=== PATIENT | female | born 1975 | race Asian ===

== ENCOUNTER 2017-11-29 17:12 | Emergency (ER) | payer BC ==
[2017-11-29 17:29] VITALS: BP 106/67
--- NOTE | 2017-11-29 18:29 | EDM.PDOC ---
ED HPI GENERAL MEDICAL PROBLEM - General Chief Complaint: Lower Extremity Injury/Pain Stated Complaint: RIGHT KNEE INJURY Time Seen by Provider: 11/29/17 17:27 Source of Information: Reports: Patient History Limitations: Reports: No Limitations - History of Present Illness INITIAL COMMENTS - FREE TEXT/NARRATIVE: The patient was skiing in [place] and she hit a pill of snow and hurt her right knee. Her ski flew off and she fell. When she got up, she had pain and her knee felt unstable. She has no other injuries. Onset: Sudden Duration: Hour(s): (10am) Location: Reports: Lower Extremity, Right (Knee) Quality: Reports: Sharp Severity: Moderate Improves with: Reports: Immobilization Worsens with: Reports: Movement Associated Symptoms: Reports: No Other Symptoms - Related Data Allergies Allergy/AdvReac Type Severity Reaction Status Date / Time No Known Allergies Allergy Verified 11/29/17 17:29 Home Meds: Home Meds Acetaminophen [Tylenol] 650 mg PO Q6H PRN #50 tablet 09/10/14 [Rx] Ibuprofen [Motrin] 200 - 800 mg PO Q6H PRN #50 tablet 09/10/14 [Rx] Past Medical History - Past Health History Medical/Surgical History: Denies Medical/Surgical History Social & Family History - Tobacco Use Smoking Status *Q: Never Smoker - Caffeine Use Caffeine Use: Reports: Coffee - Alcohol Use Days Per Week of Alcohol Use: 0 - Recreational Drug Use Recreational Drug Use: No Review of Systems - Review of Systems Review Of Systems: See Below Constitutional: Reports: No Symptoms Eyes: Reports: No Symptoms Ears: Reports: No Symptoms Nose: Reports: No Symptoms Mouth/Throat: Reports: No Symptoms Respiratory: Reports: No Symptoms Cardiovascular: Reports: No Symptoms GI/Abdominal: Reports: No Symptoms Musculoskeletal: Reports: Other (Right knee pain) ED EXAM, GENERAL - Physical Exam Exam: See Below Exam Limited By: No Limitations General Appearance: Alert, No Apparent Distress Ears: Normal External Exam Nose: Normal Inspection Head: Atraumatic, Normocephalic Neck: Normal Inspection Respiratory/Chest: No Respiratory Distress Extremities: Other (Mild edema to her right knee with mild pain upon palpation to her medial knee. Ligaments appear stable. good sensation and pulses distally.) Course - Vital Signs Last Recorded V/S: Last Vital Signs Temp 97.9 F 02/18/18 17:27 Pulse 52 L 11/29/17 17:27 Resp 16 11/29/17 17:27 BP 106/67 11/29/17 17:27 Pulse Ox 95 11/29/17 17:27 - Orders/Labs/Meds Orders: Active Orders 24 hr Category Date Time Status Knee Min 4V Rt [CR] Stat Exams 11/29/17 17:38 Taken - Re-Assessments/Exams Free Text/Narrative Re-Assessment/Exam: 11/29/17 18:27 Her x-ray looks good. I will put her in a knee immobilizer and have her follow up with Dr Holcomb. Departure - Departure Time of Disposition: 18:30 Disposition: Home, Self-Care 01 Condition: Good Clinical Impression: Right knee sprain Qualifiers: Encounter type: initial encounter Involved ligament of knee: unspecified ligament Qualified Code(s): S83.91XA - Sprain of unspecified site of right knee , initial encounter - Discharge Information Referrals: PCP,None [Primary Care Provider] - Shabbir Holcomb MD [Physician] - 1 Week Additional Instructions: Wear the knee immobilizer for stability. Ice your knee for 15 minutes 3 times per day for 2 days. Take tylenol or motrin for pain. Follow up with Dr Holcomb in 1 week. - My Orders Last 24 Hours: My Active Orders 11/29/17 17:38 Knee Min 4V Rt [CR] Stat - Assessment/Plan Last 24 Hours: My Active Orders 11/29/17 17:38 Knee Min 4V Rt [CR] Stat
--- NOTE | 2017-11-30 08:25 | CR ---
Right knee: Four views of the right knee were obtained. Comparison: No previous study. Medial and lateral joint spaces are preserved. No joint effusion is seen. No acute fracture or other abnormality is identified. Impression: 1. No abnormality is identified on right knee exam. Diagnostic code #1
== END 2017-11-29 18:35 | disposition home or self-care (01) ==
LOC: JD.ED 17:12
DX: S83.91XA Sprain of unspecified site of right knee, initial encounter (principal); W17.89XA Other fall from one level to another, initial encounter; Y93.23 Activity, snow (alpine) (downhill) skiing, snowboarding, sledding, tobogganing and snow tubing
CPT/HCPCS: 73564-26-RT; 73564-RT; 99283

== ENCOUNTER 2022-04-24 07:40 | Day surgery (SDC) | payer BC ==
[~2022-04-24 07:40] MED LIST: Lactated Ringers 1,000 ML IV SCH; Lidocaine 1%/Sod Bicarbonate in NS 8.4% 1 ML Syringe IDERM PRN; Sodium Chloride 0.9% 10 ML Syringe FLUSH PRN; Sodium Chloride 0.9% 10 ML Syringe FLUSH SCH
[2022-04-24] MEDS ORDERED: fentaNYL 100 MCG/2 ML SDV ONE (08:33)
[2022-04-24] MEDS ORDERED: Lidocaine 1% 5 ML VIAL ONE (08:33)
[2022-04-24] MEDS ORDERED: Midazolam 1 MG/ML 2 ML SDV ONE (08:33)
[2022-04-24] MEDS ORDERED: Propofol 200 MG/20 ML SDV ONE (08:33)
[2022-04-24 10:21] VITALS: BP 108/70; PULSE 62
== END 2022-04-24 10:28 | disposition home or self-care (01) ==
LOC: JD.SDS 07:40
PROVIDERS: ATTEND Surgery
DX: Z12.11 Encounter for screening for malignant neoplasm of colon (principal); N95.1 Menopausal and female climacteric states; E55.9 Vitamin D deficiency, unspecified; Z98.890 Other specified postprocedural states; Z79.899 Other long term (current) drug therapy; Z78.9 Other specified health status; Z91.09 Other allergy status, other than to drugs and biological substances
CPT/HCPCS: 45378; J2250; J2704; J7120; 00812; J3010